=== PATIENT | male | born 1970 | race African-American/Black ===

== ENCOUNTER 2016-10-21 10:28 | Emergency (ER) | payer MEDICAID ==
[~2016-10-21] VITALS: Ht 182.9 cm; Wt 120.5 kg
[2016-10-21] MEDS ORDERED: REMERON30 MG PO (11:13)
[2016-10-21] MEDS ORDERED: VENTOLIN0.09 MG IH (11:13)
[2016-10-21] MEDS ORDERED: LEXAPRO20 MG PO (11:13)
[2016-10-21] MEDS ORDERED: NORCO 325 MG-51 TAB PO (11:55)
[2016-10-21 12:04] VITALS: BP 131/85; PULSE 89; TEMP 99.1
== END 2016-10-21 12:05 | disposition home or self-care (01) ==
LOC: COL.ER 10:28
DX: S43.401A Unspecified sprain of right shoulder joint, initial encounter (principal); F32.9 Major depressive disorder, single episode, unspecified; J44.9 Chronic obstructive pulmonary disease, unspecified; W18.39XA Other fall on same level, initial encounter